=== PATIENT | male | born 1995 | race American Indian/Alaskan Native ===

== ENCOUNTER 2018-04-22 09:39 | Inpatient (IN) | payer MEDICAID ==
[2018-04-22 09:39] VITALS: BMI 22.1
[2018-04-22 09:50] VITALS: O2SAT 100
--- NOTE | 2018-04-22 10:20 | ED PDOC ---
HPI: Psych/Substance Abuse Time Seen by Provider: 04/22/18 09:55 Chief Complaint (Nursing): Psychiatric Evaluation Chief Complaint (Provider): Psychiatric Evaluation History Per: Patient History/Exam Limitations: no limitations Additional Complaint(s): 23 year old male with no past medical history, who presents to the emergency department for a psychiatric evaluation. Patient states he feels depress and has SI with plan to overdose on pills this morning. He further reports that he was diagnosed with HIV positive x2 days ago. PMD: no provider Past Medical History Reviewed: Historical Data, Nursing Documentation, Vital Signs Vital Signs: Last Vital Signs Temp 99.1 F 04/22/18 09:49 Pulse 99 H 04/22/18 10:17 Resp 17 04/22/18 09:49 BP 147/81 04/22/18 10:17 Pulse Ox 100 04/22/18 09:49 - Medical History PMH: Anxiety, Bipolar Disorder, Depression, HIV Denies: Diabetes, Hepatitis, HTN, Chronic Kidney Disease, Seizures, Sexually Transmitted Disease - Surgical History Surgical History: No Surg Hx - Family History Family History: States: Unknown Family Hx - Social History Current smoker - smoking cessation education provided: Yes Drugs: Cannabis - Immunization History Hx Tetanus Toxoid Vaccination: No Hx Influenza Vaccination: No Hx Pneumococcal Vaccination: No - Home Medications Home Medications: Ambulatory Orders Medication Instructions Recorded No Known Home Med 04/22/18 - Allergies Allergies/Adverse Reactions: Allergies Allergy/AdvReac Type Severity Reaction Status Date / Time No Known Allergies Allergy Verified 04/22/18 10:18 Review of Systems ROS Statement: Except As Marked, All Systems Reviewed And Found Negative Psych: Positive for: Depression, Suicidal ideation Physical Exam - Reviewed Nursing Documentation Reviewed: Yes Vital Signs Reviewed: Yes - Physical Exam Appears: Positive for: Non-toxic, No Acute Distress Head Exam: Positive for: ATRAUMATIC, NORMOCEPHALIC Skin: Positive for: Normal Color, Warm, Dry Eye Exam: Positive for: Normal appearance, EOMI, PERRL ENT: Positive for: Normal ENT Inspection Neck: Positive for: Normal, Painless ROM, Supple Cardiovascular/Chest: Positive for: Regular Rate, Rhythm. Negative for: Murmur Respiratory: Positive for: Normal Breath Sounds. Negative for: Respiratory Distress Gastrointestinal/Abdominal: Positive for: Normal Exam, Soft. Negative for: Tend erness Back: Positive for: Normal Inspection. Negative for: L CVA Tenderness, R CVA Tenderness, Vertebral Tenderness Extremity: Positive for: Normal ROM. Negative for: Pedal Edema, Deformity Neurologic/Psych: Positive for: Alert, Oriented. Negative for: Motor/Sensory Deficits - Laboratory Results Result Diagrams: 04/22/18 10:40 04/22/18 10:40 - ECG O2 Sat by Pulse Oximetry: 100 (RA) Pulse Ox Interpretation: Normal Medical Decision Making Medical Decision Makin Impression: SI Plan: --Alcohol serum --CMP --Urine drug screen --ED urine dipstick --CBC with differential --1:1 observation Medically stable for psychiatric admission Scribe Attestation: Documented by Casimiro Cortés, acting as a scribe for Mihir Gorman MD. Provider Scribe Attestation: All medical record entries made by the Scribe were at my direction and personally dictated by me. I have reviewed the chart and agree that the record accurately reflects my personal performance of the history, physical exam, medical decision making, and the department course for this patient. I have also personally directed, reviewed, and agree with the discharge instructions and disposition. Disposition - Clinical Impression Clinical Impression: Depression - Patient ED Disposition Is Patient to be Admitted: Yes - Disposition Disposition Time: 13:04 Condition: FAIR Forms: [employer]) - Pt Status Changed To: Hospital Disposition Of: Inpatient - Admit Certification Admit to Inpatient:: After my assessment, the patient will require hospitalization for at least two midnights. This is because of the severity of symptoms shown, intensity of services needed, and/or the medical risk in this patient being treated as an outpatient. - POA Present On Arrival: None
[2018-04-22 10:52] LABS: BASO # 0.1 K/uL (0.0-0.2); BASO % 0.7 % (0.0-2.0); EOS # 0.1 K/uL (0.0-0.7); EOS % 0.9 % (0.0-4.0); HEMOGLOBIN 14.3 g/dL (12.0-18.0); LYMPH % 24.1 % (20.0-40.0); MEAN CELL VOLUME 90.8 fl (80.0-94.0); MEAN CORPUSCULAR HEMOGLOBIN 29.6 pg (27.0-31.0); MEAN CORPUSCULAR HGB CONC 32.6 g/dL (33.0-37.0); MEAN PLATELET VOLUME 8.2 fl (7.2-11.7); MONO # 0.7 K/uL (0.0-0.8); MONO % 8.3 % (0.0-10.0); NEUT # 5.4 K/uL (1.8-7.0); NRBC % 0.3 % (0.0-0.0); RBC 4.84 Mil/uL (4.40-5.90); RED CELL DISTRIBUTION WIDTH 13.9 % (11.5-14.5); WHITE BLOOD COUNT 8.2 K/uL (4.8-10.8)
[2018-04-22 11:02] LABS: ALB/GLOB RATIO 1.3 (1.0-2.1); ALBUMIN 4.7 g/dL (3.5-5.0); ALT/SGPT 39 U/L (21-72); AST/SGOT 34 U/L (17-59); BLOOD UREA NITROGEN 16 mg/dl (9-20); CALCIUM 9.3 mg/dL (8.4-10.2); GFR NON-AFRICAN AMERICAN > 60
[2018-04-22 15:18] LABS: BARBITURATES, UR NEGATIVE (NEGATIVE); BENZODIAZEPINES, UR NEGATIVE (NEGATIVE); OPIATES, UR NEGATIVE (NEGATIVE); PHENCYCLIDINE, UR NEGATIVE (NEGATIVE)
[2018-04-22 15:30] VITALS: RESP 18
[2018-04-22] MEDS ORDERED: DiphenhydrAMINE 50 mg/ml Inj IM PRN (18:20)
[2018-04-22] MEDS ORDERED: Magnesium Hydroxide Susp 30 ml UD PO PRN (18:20)
[2018-04-22] MEDS ORDERED: Alum-Mag Hydrox-Simethicone Susp (30 mL) PO PRN (18:20)
--- NOTE | 2018-04-22 19:17 | PCM.BM ---
<NicolasLulu Zuniga - Last Filed: 04/22/18 19:15> Treatment Plan Problems - Problems identified on initial assessmt Feelings of Worthlessness Date Initiated: 04/22/18 Time Initiated: 19:15 Assessment reference: NA Status: Active Treatment assets and liabiliti Patient Assests: cooperative, resourceful, self-reliant, ADL independent, negotiates basic needs Patient Liabilities: financial problems, poor support system, relationship conflicts, substance abuse (monitor for s/s of w/d) - Milieu Protocol Maintain good personal hygiene: daily Encourage regular showers, daily Remind patient to perform daily oral care, other Assist patient to perform ADL's Conduct patient checks and document Observation sheet: Q15 minutes Maintain personal safety: every shift Educate patient to report safety concerns to staff, every shift Monitor environment for contraband/sharps Medication safety: Monitor for expected outcome, potential side effects: every shift, Assess barriers to learning: every shift, Assess readiness for medication education: every shift <Aaron Valencia - Last Filed: 04/24/18 14:40> Family Contact Family involvement: Family/SO is involved Family contact: Patient declines to allow family contact at present Family contact name: Pt refused. Family contacted how many times per week?: 2 - Goals for Treatment Patient goals for treatment: Pt could not offer goals for himself at this time and signed a 48 hour notice with intent to leave the unit. Discharge/Continuing Care - Education Needs Education Needs: Patient Medication, Patient Diagnosis/Disease Process, Patient Coping Skills, Patient Community resources, Patient Aftercare Safety Plan - Discharge Discharge Criteria: Tolerates medication w/o severe side effects, Free of Sharma icidal thoughts, Free of agitation, Normal sleep pattern, Ability to care for self, Reduction of target symptoms Discharge to:: Home, With Family - Additional Comments 04/24/18 14:41 Pt seen in treatment team on 04/24/18. As per pt he reported he has been doing meth for 1.5 to 2 years. Pt reported he has been hospitalized at [facility] "a lot." Pt reported he often has trouble concentrating and retaining information. Pt reported this current episode of depression has lasted 2 weeks, but pt has been depressed on and off since grade school. Abilify and Neurontin were discussed and Dr. Wilkinson wanted to introduce Wellbutrin, but pt refused. Pt denied SI/HI and AVT hallucinations. - Treatment Team Participation Discussed with Family/SO: No Was Patient/Family/SO present at Treatment Team Meeting: Yes <Ashly Wilkinson - Last Filed: 04/26/18 12:27> - Diagnosis (1) Depression Status: Acute Interventions: 04/26/18 12:25 psychotherapy pharmacotherapy
[2018-04-23 08:49] LABS: T4 9.52 ug/dl (5.5-11.0)
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
[2018-04-23] MEDS: Multivitamin With Minerals Tab PO SCH ×2 (14:33→16:11)
--- NOTE | 2018-04-23 15:07 | PCM.PSYCH ---
Initial Psychiatric Evaluation - Initial Psychiatric Evaluation Type of Admission: Voluntary Legal Status: Capacity Chief Complaint (in patient's own words): I am depressed History of Present Illness and Precipitating Events: pt is 23 ys old male with previous diagnosis of bipolar disorder and substance use non compliant with medications or follow up , presented to ER with sucidal ideation with plan to jump of the bridge reported increased depression in the context of possible HIV diagnosis, pt also has relpsed on stimulant with IV injection pt reported on the unit feeling hopeless helpless, poor motivation and anhedonia, passive suicidal ideation without plan, unidentified visual hallucinations, denied command hallucinations, denied homicidal ideation Current Medications: Active Medications Generic Name Dose Route Start Last Admin Trade Name Freq PRN Reason Stop Dose Admin Acetaminophen 650 mg 04/22/18 18:20 Tylenol 325mg Tab PO Q4 PRN Pain, moderate (4-7) Al Hydrox/Mg Hydrox/Simethicone 30 ml 04/22/18 18:20 Maalox Plus 30 Ml PO Q4 PRN Dyspepsia Aripiprazole 5 mg 04/23/18 11:08 04/23/18 14:32 Abilify PO Not Given DAILY LUIS ANTONIO Cyclobenzaprine HCl 5 mg 04/22/18 18:26 Flexeril PO Q8 PRN Muscle spasm Diphenhydramine HCl 50 mg 04/22/18 18:20 Benadryl IM Q6 PRN Extrapyramidal S/S Unable PO Diphenhydramine HCl 50 mg 04/22/18 18:20 Benadryl PO Q6 PRN Extrapyramidal Symptoms Diphenhydramine HCl 50 mg 04/22/18 20:58 04/23/18 03:03 Benadryl PO 50 mg HS PRN Administration Sleep Gabapentin 100 mg 04/23/18 13:00 04/23/18 14:33 Neurontin PO Not Given TID LUIS ANTONIO Haloperidol 5 mg 04/22/18 18:20 Haldol PO Q4 PRN Agitation Haloperidol Lactate 5 mg 04/22/18 18:20 Haldol IM Q4 PRN Agitation, Unable to Take PO Loperamide HCl 2 mg 04/22/18 18:24 Imodium PO Q4 PRN After Loose Bowel Movement Lorazepam 2 mg 04/22/18 18:20 Ativan IM Q4 PRN Anxiety/Agitation,Unable PO Lorazepam 2 mg 04/22/18 18:20 Ativan PO Q4 PRN Anxiety/Agitation Magnesium Hydroxide 30 ml 04/22/18 18:20 Milk Of Magnesia PO HS PRN Constipation Multivitamins/Minerals 1 tab 04/23/18 09:00 04/23/18 14:33 Therapeutic-M Tab PO Not Given DAILY LUIS ANTONIO Past Psychiatric History - Past Psychiatric History Explanation of prior treatment: at least three admissions, hx of non compliance History of ETOH/Drug Use: stimulant abuse Pertinent Medical Hx (Current Medical&Sleep Prob, Allergies): Allergies Allergy/AdvReac Type Severity Reaction Status Date / Time No Known Allergies Allergy Verified 04/22/18 10:18 No Known Home Med 04/22/18 Mental Status Examination - Personal Presentation Personal Presentation: Looks stated age - Affect Affect: Constricted, Depressed - Motor Activity Motor Activity: Psychomotor Retardation - Reliability in Providing Information Reliability in Providing Information: Poor, due to alteration in thoughts, Poor, due to altered mood - Speech Speech: Relevant - Mood Mood: Depressed, Anxious - Formal Thought Process Formal Thought Process: Hallucinations - Hallucinations/Delusions Hallucinations: Visual - Cognitive Functions Orientation: Person, Place, Situation, Time Sensorium: Alert Attention/Concentration: Easily distracted Abstract Thinking: [place] Judgement: Imparied, as evidence by: Poor judgement, Imparied, as evidence by: Lack of insight into illness - Risk Risk: Suicidal, Diminished functioning - Strength & Assets Inventory Strength & Assets Inventory: Family support Additional comments: poor compliance DSM 5 DX - DSM 5 DSM 5 Diagnosis: bipolar disorder depressed stimulant abuse - Recommended/Plan of Treatment Treatment Recommendations and Plan of Treatment: start abilify 5mg increase gradually motivational, group and supportive therapy
[2018-04-23 17:33] LABS: RAPID PLASMA REAGIN REACTIVE (NONREACTIVE)
[2018-04-24] MEDS: Multivitamin With Minerals Tab PO SCH (09:16)
[2018-04-24 12:08] LABS: HEPATITIS B SURFACE AG Negative (NEGATIVE)
[2018-04-24 12:13] LABS: HEPATITIS A IGM NEGATIVE (NEGATIVE); HEPATITIS B CORE AB NEGATIVE (NEGATIVE)
[2018-04-24 12:33] LABS: HEPATITIS C ANTIBODY NEGATIVE (NEGATIVE)
--- NOTE | 2018-04-24 16:23 | PCM.PYCHPN ---
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, being positive for syphilis supportive therapy provided pt denied any current active thoughts of self harm, denied perceptual distu rbances Medical Problems: at least three admissions, hx of non compliance DSM 5 Symptoms Update: bipolar disorder stimulant abuse Medication Change: Yes (increase abilify) Medical Record Reviewed: Yes Mental Status Examination - Cognitive Function Orientation: Person, Place, Situation, Time Attention: WNL Concentration: WNL Association: WNL Fund of Knowledge: Poor Decription of patient's judgement and insights: poor insight and judgment - Mood Mood: Depressed, Anxious - Affect Affect: Constricted, Depressed - Speech Speech: Appropriate - Formal Thought Process Formal Thought Process: Hallucinations, Circumstantial - Suicidal Ideation Suicidal Ideation: No - Homicidal Ideation Homicidal Ideation: No Goal/Treatment Plan - Goal/Treatment Plan Need for Continued Stay: Severe depression anxiety, Discharge may exacerbated symptoms Progress Toward Problem(s) and Goals/Treatment Plan: abilify 10mg i motivational, group and supportive therapy
[2018-04-25] MEDS: Multivitamin With Minerals Tab PO SCH (08:56)
--- NOTE | 2018-04-25 15:32 | PCM.PYCHPN ---
Psychiatric Progress Note - Psychiatric Progress Note Patient seen today, length of contact: pt evaluated discussed with team chart reviewed Patient Chief Complaint: I will take care of my problems outside Problems Identified/Issues Discussed: pt evaluated , seen in bed, reported clearing off of the visual hallucinations, reported improved mood with abilify , no reported side effects, discussed with pt the results of his laboratory tests, informed him of being RPR positive, educated pt about starting ID consult pt declined, prefering to seek treatment with his PMD, continues to request discharge with limited insight into his illness pt denied any current active thoughts of self harm, denied perceptual disturbances Medical Problems: at least three admissions, hx of non compliance DSM 5 Symptoms Update: bipolar disorder stimulant abuse Medication Change: Yes (increase abilify) Medical Record Reviewed: Yes Mental Status Examination - Cognitive Function Orientation: Person, Place, Situation, Time Attention: WNL Concentration: WNL Association: WNL Fund of Knowledge: Poor Decription of patient's judgement and insights: poor insight and judgment - Mood Mood: Depressed, Anxious - Affect Affect: Constricted, Depressed - Speech Speech: Appropriate - Formal Thought Process Formal Thought Process: Hallucinations, Circumstantial - Suicidal Ideation Suicidal Ideation: No - Homicidal Ideation Homicidal Ideation: No Goal/Treatment Plan - Goal/Treatment Plan Need for Continued Stay: Severe depression anxiety, Discharge may exacerbated symptoms Progress Toward Problem(s) and Goals/Treatment Plan: abilify 10mg motivational, group and supportive therapy
[2018-04-26] MEDS: Multivitamin With Minerals Tab PO SCH (11:36)
[2018-04-26 11:38] VITALS: BP 128/76; PULSE 81; TEMP 96.8
--- NOTE | 2018-04-26 12:43 | PCM.PYCHDC ---
Mental Status Examination - Mental Status Examination Orientation: Person, Place, Situation Memory: Intact Mood: Neutral Affect: Constricted Speech: Appropriate Attention: WNL Concentration: WNL Association: WNL Fund of Knowledge: WNL Formal Thought Process: No Impairment Description of patient's judgement and insight: poor insight and judgment Psychotic Thoughts and Behaviors: pt ondischarge denied perceptual disturbances, non elicited Suicidal Ideation: No Current Homicidal Ideation?: No Discharge Summary - Discharge Note Reason for Hospitalization: pt is 23 ys old male with previous diagnosis of bipolar disorder and substance use non compliant with medications or follow up , presented to ER with sucidal ideation with plan to jump of the bridge reported increased depression in the context of possible HIV diagnosis, pt also has relpsed on stimulant with IV injection pt reported on the unit feeling hopeless helpless, poor motivation and anhedonia, passive suicidal ideation without plan, unidentified visual hallucinations, denied command hallucinations, denied homicidal ideation Consultations:: List each consultation separately and include: 1. Reason for request. 2. Findings. 3. Follow-up Summary of Hospital Course include:: 1. Description of specific treatment plan utilized for patients during their course of treatmen. 2. Summarize the time- course for resolution of acute symptoms and/or regressed behaviors. 3. Describe issues identified and worked on during hospitalization. 4. Describe medication utilized. 5. Describe medical problems identified and treated. 6. 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 however he declined initiating ID and refused treatment for positive RPR patient was awake alert ox3, understood the benefits of treatment was able to verbalize the risks of not being treated and was able to retain information, continued to decline treatment pt at current mental status did not meet criterisa for involuntary admission and was discharged against medical advise on discharge mental status was stable denied any current suicidal or homicidal ideation, denied perceptual disturbances - Diagnosis (1) Depression Current Visit: Yes Status: Acute - Final Diagnosis (DSM 5) Condition upon Discharge: FAIR DSM 5: bipolar disorder amphetamine abuse Disposition: AGAINST MEDICAL ADVICE - Antipsychotic Medications Pt discharged on 2 or more routine antipsychotic medications: No
== END 2018-04-26 13:27 | disposition left against medical advice (07) | DRG 753 ==
LOC: H.ER 09:39 → H.ERHOLD 13:04 → H.PSYCH 16:58
PROVIDERS: ADMIT Psychiatry & Neurology Psychiatry; ATTEND Psychiatry & Neurology Psychiatry
PROC: HZ57ZZZ Individual Psychotherapy for Substance Abuse Treatment, Motivational Enhancement (ICD-10-PCS; principal; 2018-04-22)
PROC: GZHZZZZ Group Psychotherapy (ICD-10-PCS; 2018-04-22)
PROC: GZ56ZZZ Individual Psychotherapy, Supportive (ICD-10-PCS; 2018-04-22)
DX: F31.9 Bipolar disorder, unspecified (principal); Z91.14 Patient's other noncompliance with medication regimen; R45.851 Suicidal ideations; Z91.19 Patient's noncompliance with other medical treatment and regimen; F15.10 Other stimulant abuse, uncomplicated; F17.210 Nicotine dependence, cigarettes, uncomplicated; A53.9 Syphilis, unspecified

== ENCOUNTER 2018-06-25 11:03 | Emergency (ER) | payer MEDICAID, OTHER ==
[2018-06-25 11:03] VITALS: BMI 22.1
[2018-06-25 11:21] VITALS: O2SAT 100
[2018-06-25] MEDS ORDERED: Sodium Chloride 0.9% 1,000 ML IV STA (11:54)
[2018-06-25] MEDS ORDERED: Penicillin G Benzathine 2.4 Mill Unit/4 ml Syr IM ONE (11:58)
--- NOTE | 2018-06-25 12:01 | ED PDOC ---
HPI: Psych/Substance Abuse Time Seen by Provider: 06/25/18 11:42 Chief Complaint (Nursing): Shortness Of Breath Chief Complaint (Provider): SOB, chest pain, palpitations History Per: Patient History/Exam Limitations: no limitations Onset/Duration Of Symptoms: Mins Modifying Factor(s): Other (crystal meth) Additional Complaint(s): 23yo male, comes to ER reporting he felt shortness of breath, palpitations and chest discomfort since early this morning after he used crystal meth. He states he felt very anxious after using the substance, but feels better in the ER. He a dditionally reports leg pain, which he states has been ongoing for a while. Otherwise, no fever, chills, nausea, vomiting, dizziness, numbness, tingling or weakness. He also denies any alcohol use or other illicit substance use. Patient additionally reports dysuria, states on his last admission, he was informed he had syphillis and is now requesting treatment. He denies any genital rash, penile discharge, testicular pain. No suicidal or homicidal ideation. No additional complaints. PMD: None provided Past Medical History Reviewed: Historical Data, Nursing Documentation, Vital Signs Vital Signs: Last Vital Signs Temp 99.3 F 06/25/18 11:21 Pulse 88 06/25/18 11:21 Resp 13 06/25/18 11:25 BP 157/95 H 06/25/18 11:21 Pulse Ox 100 06/25/18 11:25 - Medical History PMH: Anxiety, Bipolar Disorder, Depression, HIV (dx 2 days ago), Sexually Transmitted Disease Denies: Asthma, Diabetes, Hepatitis, HTN, Chronic Kidney Disease, Seizures - Surgical History Surgical History: No Surg Hx - Family History Family History: States: Unknown Family Hx - Social History Drugs: Methamphetamine - Immunization History Hx Tetanus Toxoid Vaccination: No Hx Influenza Vaccination: No Hx Pneumococcal Vaccination: No - Home Medications Home Medications: Ambulatory Orders Medication Instructions Recorded Doxycycline Hyclate 100 mg PO BID 14 Days capsule 06/25/18 - Allergies Allergies/Adverse Reactions: Allergies Allergy/AdvReac Type Severity Reaction Status Date / Time No Known Allergies Allergy Verified 06/24/18 07:07 Review of Systems ROS Statement: Except As Marked, All Systems Reviewed And Found Negative Cardiovascular: Positive for: Palpitations. Negative for: Light Headedness Respiratory: Positive for: Shortness of Breath Genitourinary Male: Positive for: Dysuria. Negative for: Frequency, Incontinence, Penile Discharge, Scrotal Pain, Penile Pain Musculoskeletal: Positive for: Leg Pain Neurological: Negative for: Weakness, Numbness, Dizziness Physical Exam - Reviewed Nursing Documentation Reviewed: Yes Vital Signs Reviewed: Yes - Physical Exam Appears: Positive for: Non-toxic, No Acute Distress Head Exam: Positive for: ATRAUMATIC, NORMAL INSPECTION, NORMOCEPHALIC Skin: Positive for: Normal Color Eye Exam: Positive for: Normal appearance, EOMI, PERRL Neck: Positive for: Supple Cardiovascular/Chest: Positive for: Regular Rate, Rhythm. Negative for: Tachycardia Respiratory: Positive for: Normal Breath Sounds. Negative for: Respiratory Distress Gastrointestinal/Abdominal: Positive for: Normal Exam, Soft. Negative for: Tenderness Back: Positive for: Normal Inspection. Negative for: L CVA Tenderness, R CVA Tenderness Extremity: Positive for: Normal ROM. Negative for: Tenderness, Pedal Edema, Deformity Neurological/Psych: Positive for: Awake, Alert, Normal Tone, Oriented (x 3), Mood/Affect (calm, cooperative), window installation subcontractor II-XII. Negative for: Motor/Sensory Deficits - Laboratory Results Result Diagrams: 06/25/18 12:20 06/25/18 12:20 Interpretation Of Abn Labs: amphetamines and cannabis - ECG O2 Sat by Pulse Oximetry: 100 Medical Decision Making Medical Decision Makinyo male w/ chest discomfort, shortness of breath s/p methamphetamine use Plan: -- Labs -- CXR -- IV Fluids -- Urine drug screen Records reviewed from 04/26, patient positive for RPR and was offered medications at that time, but patient had declined; patient amenable to treatment today -- Bicillin IM given --- Scribe Attestation: Documented by Anika Irvin acting as a scribe for Eusebio Escobar MD Provider Scribe Attestation: All medical record entries made by the Scribe were at my direction and personally dictated by me. I have reviewed the chart and agree that the record accurately reflects my personal performance of the history, physical exam, medical decision making, and the department course for this patient. I have also personally directed, reviewed, and agree with the discharge instructions and disposition. Disposition - Clinical Impression Clinical Impression: Syphilis, Substance abuse, Hypokalemia - Patient ED Disposition Is Patient to be Admitted: No Counseled Patient/Family Regarding: Studies Performed, Diagnosis, Need For Followup, Rx Given - Disposition Referrals: [facility] [Outside] - 06/27/18 Disposition: Routine/Home Disposition Time: 14:36 Condition: STABLE Prescriptions: Doxycycline Hyclate 100 mg PO BID 14 Days capsule Instructions: Syphilis, Polysubstance Abuse, Hypokalemia
--- NOTE | 2018-06-25 12:37 | RAD ---
Date of service: 06/25/2018 HISTORY: dyspnea COMPARISON: No prior. FINDINGS: LUNGS: The lungs are well inflated and clear. PLEURA: No pleural effusions or pneumothorax. CARDIOVASCULAR: The heart is normal in size. No aortic atherosclerotic calcifications present. OSSEOUS STRUCTURES: Within normal limits for the patient's age. VISUALIZED UPPER ABDOMEN: Normal. OTHER FINDINGS: None. IMPRESSION: No active pulmonary disease.
[2018-06-25 13:00] LABS: BASO # 0.1 K/uL (0.0-0.2); BASO % 1.2 % (0.0-2.0); EOS # 0.1 K/uL (0.0-0.7); EOS % 1.2 % (0.0-4.0); HEMOGLOBIN 14.5 g/dL (12.0-18.0); LYMPH # 2.5 K/uL (1.0-4.3); LYMPH % 33.9 % (20.0-40.0); MEAN CELL VOLUME 89.6 fl (80.0-94.0); MEAN CORPUSCULAR HEMOGLOBIN 29.6 pg (27.0-31.0); MEAN PLATELET VOLUME 8.4 fl (7.2-11.7); MONO # 0.5 K/uL (0.0-0.8); MONO % 7.2 % (0.0-10.0); NEUT # 4.2 K/uL (1.8-7.0); NEUT % 56.5 % (50.0-75.0); NRBC % 0.2 % (0.0-0.0); RBC 4.89 Mil/uL (4.40-5.90); RED CELL DISTRIBUTION WIDTH 13.1 % (11.5-14.5); WHITE BLOOD COUNT 7.4 K/uL (4.8-10.8)
[2018-06-25 13:04] LABS: ALB/GLOB RATIO 1.4 (1.0-2.1); ALBUMIN 4.7 g/dL (3.5-5.0); ALT/SGPT 33 U/L (21-72); AST/SGOT 28 U/L (17-59); BLOOD UREA NITROGEN 15 mg/dl (9-20); CALCIUM 9.4 mg/dL (8.4-10.2); GFR NON-AFRICAN AMERICAN > 60
[2018-06-25 13:26] LABS: BARBITURATES, UR NEGATIVE (NEGATIVE); BENZODIAZEPINES, UR NEGATIVE (NEGATIVE); OPIATES, UR NEGATIVE (NEGATIVE); PHENCYCLIDINE, UR NEGATIVE (NEGATIVE)
[2018-06-25] MEDS ORDERED: Potassium Chloride 20 mEq ER Tab PO STA (14:34)
[2018-06-25] MEDS ORDERED: Potassium Chloride 20 mEq ER Tab PO ONE (14:53)
[2018-06-25 15:15] VITALS: BP 139/69; PULSE 76; RESP 18; TEMP 98.2
--- NOTE | 2018-06-25 15:33 | CARD ---
APPROVED REPORT Date of service: 06/25/2018 EKG Measurement Heart [id number] <Conclusion> Normal sinus rhythm with sinus arrhythmia Normal Electrocardiogram
== END 2018-06-25 15:10 | disposition home or self-care (01) ==
LOC: H.ER 11:03
DX: E87.6 Hypokalemia (principal); F19.10 Other psychoactive substance abuse, uncomplicated; A53.9 Syphilis, unspecified; F31.9 Bipolar disorder, unspecified; F41.9 Anxiety disorder, unspecified; R07.89 Other chest pain
CPT/HCPCS: 71045; 80053; 80320; 80324; 80345; 80346; 80349; 80353; 80358; 80361; 83992; 84484; 85025; 93005; 96360; 99285; J7030